=== PATIENT | female | born 1970 | race Caucasian/White ===

== ENCOUNTER 2017-07-10 22:53 | Emergency (ER) | payer BC, MEDICARE ==
[~2017-07-10] VITALS: Ht 162.6 cm; Wt 84.1 kg
[~2017-07-10 22:53] MED LIST: BENA5TAB3 PO; HYDR25TA PO
[2017-07-10] MEDS ORDERED: ALBU8HFA IH (23:00)
[2017-07-10] MEDS ORDERED: AUD NEB (23:00)
[2017-07-11] MEDS ORDERED: IPRATROPIUM BROMIDE 0.5 MG/2.5 ML NEB SOLUTION NEB ONE (01:15)
[2017-07-11] MEDS ORDERED: ALBUTEROL SULFATE 5 MG/ML 20 ML NEB SOLN [BULK] NEB ONE (01:15)
[2017-07-11] MEDS ORDERED: AZITHROMYCIN 250 MG TABLET PO ONE (01:15)
[2017-07-11] MEDS ORDERED: PredniSONE 20 MG TABLET PO ONE (01:15)
[2017-07-11 01:52] LABS: BASOPHILS # (AUTO) 0.02 K/uL (0.00-0.20); BASOPHILS % (AUTO) 0.5 % (0.0-2.0); EOSINOPHILS # (AUTO) 0.16 K/uL (0.00-0.70); EOSINOPHILS % (AUTO) 3.85 % (1.0-6.0); HEMATOCRIT 38.2 % (36-46); HEMOGLOBIN 13.1 g/dL (12.0-16.0); LYMPHOCYTES % (AUTO) 24.6 % (22.0-44.0); MEAN CORPUSCULAR HEMOGLOBIN 31.6 pg (26.0-34.0); MEAN CORPUSCULAR HGB CONC 34.2 G/dL (31.0-37.0); MEAN CORPUSCULAR VOLUME 92 fL (80-100); MONOCYTES # (AUTO) 0.4 K/uL (0.1-1.0); MONOCYTES % (AUTO) 9.9 % (2.0-9.0); NEUTROPHILS # (AUTO) 2.5 K/uL (1.8-7.7); NEUTROPHILS % (AUTO) 61.1 % (40.0-70.0); PLATELET COUNT (AUTO) 216 K/uL (150-450); RED BLOOD CELL COUNT(AUTO) 4.13 MIL/uL (4.00-5.20); RED CELL DISTRIBUTION WIDTH 13.1 % (11.5-14.5); WHITE BLOOD COUNT (AUTO) 4.1 K/uL (4.5-11.0)
[2017-07-11 01:58] LABS: ANION GAP 10 mmol/L (8-16); CARBON DIOXIDE 24 mmol/L (22-29); CHLORIDE 102 mmol/L (98-107); CREATININE 0.71 mg/dL (0.60-1.30); GLOMERULAR FILTR. RATE CALC > 60 mL/min (>60); POTASSIUM 3.8 mmol/L (3.5-5.1); SODIUM SERUM 136 mmol/L (136-145); UREA NITROGEN, BLOOD 11 mg/dL (7-18)
[2017-07-11 02:05] LABS: ALANINE AMINOTRANSFERASE 25 U/L (12-78); ALBUMIN 3.7 g/dL (3.4-5.0); ASPARTATE AMINOTRANSFERASE 14 U/L (15-37); BILIRUBIN,TOTAL 0.2 mg/dL (0.1-1.0); TOTAL PROTEIN, SERUM 7.7 g/dL (6.4-8.2)
[2017-07-11 02:47] VITALS: BP 127/84
== END 2017-07-11 02:51 | disposition home or self-care (01) ==
LOC: EMS 22:54
DX: J40 Bronchitis, not specified as acute or chronic (principal); J45.909 Unspecified asthma, uncomplicated; I10 Essential (primary) hypertension; Z88.6 Allergy status to analgesic agent; Z88.8 Allergy status to other drugs, medicaments and biological substances
CPT/HCPCS: 36415; 71010; 80053; 81025; 84484; 85025; 93005; 94640; 99285; J7512; J7611

== ENCOUNTER 2022-01-13 16:27 | Emergency (ER) | payer BC ==
[~2022-01-13] VITALS: Ht 165.1 cm; Wt 93.6 kg
[~2022-01-13 16:27] MED LIST changes: +ALBU8HFA IH; +AUD NEB; +BENA5TAB PO; -BENA5TAB3 PO; -HYDR25TA PO
[2022-01-13] MEDS ORDERED: BENA10TA77 PO (16:58)
[2022-01-13] MEDS ORDERED: MONT-40 PO (16:58)
[2022-01-13] MEDS ORDERED: BUPIVACAINE HCL/PF 0.25% 10 ML VIAL SQ ONE (17:00)
[2022-01-13] MEDS ORDERED: PERTUSS(ACELL),DIPH,TET VAC/PF 0.5 ML SYRINGE IM. ONE (17:00)
[2022-01-13 18:05] VITALS: BP 147/79
== END 2022-01-13 18:19 | disposition home or self-care (01) ==
LOC: EMS 16:28
DX: S61.210A Laceration without foreign body of right index finger without damage to nail, initial encounter (principal); I10 Essential (primary) hypertension; J45.909 Unspecified asthma, uncomplicated; Z88.8 Allergy status to other drugs, medicaments and biological substances; Z79.899 Other long term (current) drug therapy; W45.8XXA Other foreign body or object entering through skin, initial encounter; Y93.89 Activity, other specified; Y92.89 Other specified places as the place of occurrence of the external cause; Y99.8 Other external cause status
CPT/HCPCS: 12001; 90471; 90715; 99283; J3490